=== PATIENT | female | born 1950 | race Caucasian/White ===

== ENCOUNTER 2022-06-12 11:06 | Day surgery (SDC) | payer MEDICARE ==
[2022-06-12] MEDS ORDERED: Scopolamine 1.5 mg/72 hour Patch ONE (11:57)
[2022-06-12] MEDS ORDERED: Bupivacaine PF 0.5% 30 ML VIAL ONE (12:27)
[2022-06-12] MEDS ORDERED: CEFAZOLIN 1 GM VIAL ONE (12:28)
[2022-06-12] MEDS ORDERED: PROPOFOL 20 ML ONE (12:29)
[2022-06-12] MEDS ORDERED: Fentanyl 100 MCG/2 ML VIAL ONE ×2 (12:29→14:24)
[2022-06-12] MEDS ORDERED: Midazolam HCl 2 mg/2 ml Vial ONE (12:30)
[2022-06-12] MEDS ORDERED: Ketorolac Tromethamine 30 MG/ML VIAL ONE (12:30)
[2022-06-12] MEDS ORDERED: Dexamethasone 20 MG/5 ML VIAL ONE (12:30)
[2022-06-12] MEDS ORDERED: Lidocaine 2% PF 5 ML VIAL ONE (12:30)
[2022-06-12] MEDS ORDERED: Ondansetron PF 4 MG/2 ML Vial ONE (12:30)
[2022-06-12] MEDS ORDERED: ePHEDrine Sulfate 50 MG/10 ML VIAL ONE (13:12)
[2022-06-12] MEDS ORDERED: Glycopyrrolate 0.2 MG/ML 5 ML SYRINGE ONE (13:18)
== END 2022-06-12 16:00 | disposition home or self-care (01) ==
LOC: CSHSDC 11:06
PROVIDERS: ATTEND Podiatrist Foot & Ankle Surgery
PROC: 0SRM0JZ Replacement of Right Metatarsal-Phalangeal Joint with Synthetic Substitute, Open Approach (ICD-10-PCS; principal; 2022-06-12)
PROC: 0QBN0ZZ Excision of Right Metatarsal, Open Approach (ICD-10-PCS; 2022-06-12)
DX: M20.21 Hallux rigidus, right foot (principal); M77.51 Other enthesopathy of right foot and ankle; T84.498D Other mechanical complication of other internal orthopedic devices, implants and grafts, subsequent encounter; M19.071 Primary osteoarthritis, right ankle and foot; F32.A Depression, unspecified; Z79.899 Other long term (current) drug therapy; Z20.822 Contact with and (suspected) exposure to COVID-19; Z88.8 Allergy status to other drugs, medicaments and biological substances; Y83.1 Surgical operation with implant of artificial internal device as the cause of abnormal reaction of the patient, or of later complication, without mention of misadventure at the time of the procedure
CPT/HCPCS: 28291; 73620; C1713 ×2; C1776; J0690; J1100; J1885; J2001; J2250; J2405; J2704; J3010; S0020